=== PATIENT | male | born 1940 ===

== ENCOUNTER 2021-01-20 14:56 | Inpatient (IN) | payer MEDICARE, OTHER ==
[~2021-01-20] VITALS: Ht 175.3 cm; Wt 66.7 kg
--- NOTE | 2021-01-20 15:42 | NUR ---
Leonid christina in ED - 01/20/21 at 1544 by MOE Advanced pt from ice to water to jello to crackers. Pt tolerated well. MD ríos
[2021-01-20] MEDS ORDERED: LISI2.5T2 PO (16:46)
[2021-01-20] MEDS ORDERED: NITR0.4T48 SL (16:46)
[2021-01-20] MEDS ORDERED: ROSU20TA2 PO (16:46)
[2021-01-20] MEDS ORDERED: ASPI81TA31 PO (16:46)
[2021-01-20] MEDS ORDERED: ATOR80TA PO (16:46)
[2021-01-20] MEDS ORDERED: TRAZ-257 PO (16:46)
--- NOTE | 2021-01-20 18:08 | NUR ---
Called report to [facility]. Pt was taken over to unit.
[2021-01-20 20:00] VITALS: BP 125/72
[2021-01-20] MEDS ORDERED: BLOOD SUGAR DIAGNOSTIC 1 EACH STRIP VI ONE (20:30)
[2021-01-20] MEDS ORDERED: MAGNESIUM HYDROXIDE 30 ML LIQUID UDC PO PRN (20:30)
[2021-01-20] MEDS ORDERED: TEMAZEPAM 7.5 MG CAPSULE PO PRN (20:30)
[2021-01-20] MEDS ORDERED: MAG HYDROX/AL HYDROX/SIMETH 30 ML LIQUID UDC PO PRN (20:30)
[2021-01-20] MEDS ORDERED: ACETAMINOPHEN 325 MG TABLET PO PRN (20:30)
[2021-01-20] MEDS ORDERED: LORAZEPAM 0.5 MG TABLET PO PRN (20:30)
--- NOTE | 2021-01-21 02:33 | NUR ---
ADMITTED TO THE UNIT A MALE ON A [address] GD [address] 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 ON FACE TO FACE ASSESSMENT HE ADMITTED TO FEELING DEPRESSED BUT DENIED WANTING TO KILL HIMSELF. HE SAID THE FRIEND MISCONSTRUED THE WILL HE WAS WRITING.HE SAID HE WAS AFRAID TO BE EVICTED FROM HIS ROOM SINCE HE HAD LIVED IN HIS APARTMENT FOR 15 YEARS AND PAYS VERY LITTLE FOR IT. HE ALSO SAID HE HAD A LOT OF JUNK AND DID NOT KNOW WHERE TO BEGIN. BUT PER HOLD HIS ROOM WAS CLEAN EXCEPT FOR A FEW ARTIFACTS. HE DENIED AH/VH. HE IS A/S X3. HANDBOOK AND ADVISEMENT GIVEN AND UNIT RULES EXPLAINED. WILL CONTINUE TO MONITOR.
--- NOTE | 2021-01-21 06:54 | NUR ---
SLEPT FOR 4;30HOURS. HAS HAD A SHOWER
[2021-01-21 07:30] VITALS: BP 143/84
[2021-01-21] MEDS: LISINOPRIL 5 MG TABLET PO SCH (08:52)
[2021-01-21] MEDS: ASPIRIN 81 MG TAB.CHEW PO SCH (08:52)
--- NOTE | 2021-01-21 09:09 | NUR ---
Firearms Report: Salesperson [employer] completed and submitted a [employer] firearms report for 5150 grave disability certification. A copy of report has been placed in patient chart.
[2021-01-21] MEDS ORDERED: NITROGLYCERIN 0.4 MG/TAB BOTTLE SL PRN (09:45)
--- NOTE | 2021-01-21 10:15 | NUR ---
SW Family Contact: Patient's ex- Diane ([phone]) is involved in patient's care. This SW contacted ex- Luisa to discuss treatment and discharge plan. Patient Diane stated if this SW can contact her at 1PM to discuss further. This SW will contact ex-.
--- NOTE | 2021-01-21 10:15 | NUR ---
SW Initial Discharge Plan: Patient currently resides home alone located at [address] Patient will need a facility. Patient's ex- Diane ([phone]) is involved in patient's care. This SW contacted ex- Luisa to discuss treatment and discharge plan. Patient Diane stated if this SW can contact her at 1PM to discuss further. SW will coordinate with family, treatment team, and MD to find proper placement.
--- NOTE | 2021-01-21 10:16 | NUR ---
Substance Abuse Intervention: Patient was provided with a brief substance abuse intervention and referred to [facility] ([phone]), [facility] ([phone]), and [facility] ([phone]).
--- NOTE | 2021-01-21 10:32 | NUR ---
Firearms Removal: Per medical records transfer summary report from [facility] Hilary Ritter RN documented on 01/19/2021 that [place] [employer] department ([phone]) officer Kortney confiscated the gun from the patient's home. Officer Kortney noted "home was clean and secured".
[2021-01-21] MEDS ORDERED: SERTRALINE HCL 50 MG TABLET PO SCH (13:00)
--- NOTE | 2021-01-21 13:35 | NUR ---
SW Family Contact: This SW spoke with patient's ex- Diane ([phone]) who is involved in patient's care. She stated friend Daniel is also involved but she is in communication with him. This SW discussed treatment and discharge planning. Luisa shared that patient is stressed about his finances. She expressed that he has been stressed because his sister is transitioning to a Memory Care Unit and she reported that her daughter Amber is having a family crisis. Diane shared that pt and her would not want pt to know that pt is at the hospital. This SW shared pt will be needing a nursing facility and she was agreeable with this plan. SW educated Diane on pt's health status and what 5150/5250 hold is.
[2021-01-21 15:35] VITALS: BP 125/75
[2021-01-21] MEDS: ATORVASTATIN 40 MG TABLET PO SCH (20:07)
[2021-01-21 20:28] VITALS: BP 134/80
[2021-01-21] MEDS ORDERED: risperiDONE 0.25 MG TABLET PO SCH (21:00)
--- NOTE | 2021-01-22 06:07 | NUR ---
GPS: Pt.slept for 7 hrs.last night. Less anxious and depressed. Denies wanting to hurt self. Re-directed and re-assured prn. Will continue to monitor.
[2021-01-22 07:00] LABS: BASOPHILS % (AUTO) 0.3 % (0.0-2.0); EOSINOPHILS % (AUTO) 0.4 % (0.0-7.0); HEMATOCRIT 42.4 % (36.7-47.1); HEMOGLOBIN 14.5 g/dL (12.5-16.3); LYMPHOCYTES # (AUTO) 1.5 K/uL (20.0-40.0); LYMPHOCYTES % (AUTO) 24.1 % (20.5-51.5); MEAN CORPUSCULAR HEMOGLOBIN 33.3 uug (23.8-33.4); MEAN CORPUSCULAR HGB CONC 34 g/dL (32.5-36.3); MEAN CORPUSCULAR VOLUME 97.5 fL (73.0-96.2); MONOCYTES # (AUTO) 0.5 K/uL (2.0-10.0); NEUTROPHILS # (AUTO) 4.1 K/uL (1.8-8.9); NEUTROPHILS % (AUTO) 67.2 % (38.5-71.5); PLATELET COUNT (AUTO) 158 K/uL (152-348); RED BLOOD CELL COUNT(AUTO) 4.34 MIL/uL (4.06-5.63); WHITE BLOOD COUNT (AUTO) 6.2 K/uL (3.6-10.2)
[2021-01-22 07:23] LABS: THYROID STIMULATING HORMONE 2.546 mIU/mL (0.358-3.740)
[2021-01-22 07:30] VITALS: BP 123/79
--- NOTE | 2021-01-22 07:30 | NUR ---
Patient report received from credit reference clerk. Patient seen resting in bed. Alert and oriented x 3. scrap burner stated patient anxious about eviction and has depression. Compliant with medications. No thoughts of SI and HI at this time. Patient calm upon approach. Bed in low and locked position. Will continue to monitor.
[2021-01-22 07:51] LABS: BILIRUBIN,TOTAL 0.9 mg/dL (0.2-1.0); MAGNESIUM 2.2 mg/dL (1.8-2.4); PHOSPHOROUS 3.1 mg/dL (2.5-4.9); POTASSIUM 4.4 mmol/L (3.5-5.1); TOTAL PROTEIN, SERUM 7.3 g/dL (6.4-8.2)
[2021-01-22] MEDS: ASPIRIN 81 MG TAB.CHEW PO SCH (08:33)
[2021-01-22] MEDS: LISINOPRIL 5 MG TABLET PO SCH (08:33)
[2021-01-22] MEDS: SERTRALINE HCL 50 MG TABLET PO SCH (13:37)
[2021-01-22 16:51] VITALS: BP 113/70
--- NOTE | 2021-01-22 18:31 | NUR ---
patient isolative, withdrawn, on monitoring [id number] for safety, patient denies SI and Hi, minimizes his symptoms, assisted with ADL, no sign of any distress at this time
--- NOTE | 2021-01-22 18:35 | NUR ---
Patient has been more anxious throughout the day. He stated that he was anxious about his financial status and being able to afford placement in a facility. SW able to speak with the patient. Anxiousness subsided after. He has been compliant with medications. Alert and oriented x 3. Spent some time in the recreational room. Walks around occasionally. No reports of SI and HI at this time.
[2021-01-22] MEDS: ATORVASTATIN 40 MG TABLET PO SCH (20:07)
[2021-01-22] MEDS: risperiDONE 0.5 MG TABLET PO SCH (20:07)
[2021-01-22 20:38] VITALS: BP 134/81
--- NOTE | 2021-01-22 23:42 | NUR ---
GPS: Pt.noted to be awake at this time. Refused sleeping pill when offered despite explanation of risks vs benefits x3. Quiet environment provided to facilitate sleep. Re-assured prn. No verbalization of SI noted.
--- NOTE | 2021-01-23 06:36 | NUR ---
GPS: Pt.slept for 6 hrs.last night and now currently in the shower. Less depressed and anxious. Re-directed and re-assured prn. Denies SI. Safe environment provided.
[2021-01-23 07:30] VITALS: BP 120/72
[2021-01-23] MEDS: ASPIRIN 81 MG TAB.CHEW PO SCH (08:40)
[2021-01-23] MEDS: FAMOTIDINE 20 MG TABLET PO SCH (08:40)
[2021-01-23] MEDS: LISINOPRIL 5 MG TABLET PO SCH (08:41)
--- NOTE | 2021-01-23 10:51 | NUR ---
SNF Referral: This SW faxed to Jaycee desai ([phone]) to [facility]. This SW faxed H & P psychiatric note, progress notes, and medication lists.
--- NOTE | 2021-01-23 11:01 | NUR ---
SW Family Contact: This SW received a phone call from ex- Diane ([phone]) who wanted an update on patient's status. This SW stated this creative writer will find patient a nursing facility and she was agreeable with this.
--- NOTE | 2021-01-23 12:17 | NUR ---
SNF Referral: This SW received a call from Jaycee admin ([phone]) who stated pt is accepted to [facility].
[2021-01-23] MEDS: SERTRALINE HCL 50 MG TABLET PO SCH (13:27)
[2021-01-23 17:27] VITALS: BP 108/68
[2021-01-23] MEDS: ENSURE ENLIVE (VAN) 240 ML LIQUID PO SCH (17:37)
[2021-01-23 20:10] VITALS: BP 117/73
[2021-01-23] MEDS: risperiDONE 0.5 MG TABLET PO SCH (20:11)
[2021-01-23] MEDS: ATORVASTATIN 40 MG TABLET PO SCH (20:11)
[2021-01-23] MEDS: DOCUSATE SODIUM 100 MG CAPSULE PO SCH (20:15)
--- NOTE | 2021-01-24 06:43 | NUR ---
GPS: Pt.now awake. Slept for 7.30 last night. Remains anxious,paranoid and suspicious. Re-assured prn. Safe environment provided. Denies SI. Will continue to monitor.
[2021-01-24 07:30] VITALS: BP 102/71
[2021-01-24] MEDS: DOCUSATE SODIUM 100 MG CAPSULE PO SCH ×2 (08:21→20:21)
[2021-01-24] MEDS: ENSURE ENLIVE (VAN) 240 ML LIQUID PO SCH ×2 (08:21→16:04)
[2021-01-24] MEDS: FAMOTIDINE 20 MG TABLET PO SCH (08:21)
[2021-01-24] MEDS: LISINOPRIL 5 MG TABLET PO SCH (08:21)
[2021-01-24] MEDS: ASPIRIN 81 MG TAB.CHEW PO SCH (08:21)
--- NOTE | 2021-01-24 10:03 | NUR ---
Individual Therapy: oyster worker met with patient for brief counseling to help address patient's presenting problem SI. Patient denies SI. Patient appeared less depressed and less paranoid about his coverage at the hospital. Patient is understanding and wants to continue his care.
--- NOTE | 2021-01-24 11:29 | NUR ---
[facility] PC Hearing: Patient had 5250 probable cause hearing today and it was upheld for danger to self and grave disability.
[2021-01-24] MEDS: SERTRALINE HCL 50 MG TABLET PO SCH ×2 (12:10→16:04)
[2021-01-24] MEDS ORDERED: FLEET ENEMA 133 ML BOTTLE RC ONE (12:45)
[2021-01-24 16:13] VITALS: BP 105/68
--- NOTE | 2021-01-24 18:17 | NUR ---
received patient AOx1-2, Patient anxious , pre occupied of having impacted feces, patient refused taking medication , gave water and prune juice , patient refused Enema and laxative, patient tried more times but eventually had a good amount of soft stool. patient assisted with his ADLs took bath and trim his mustache, patient had good appetite during dinner time. patient on monitoring [id number] for safety, been compliant with medication, milieu therapy and care, assisted with his ADL, denies SI and HI, denies AH/VH at this time, no sign of distress
[2021-01-24 20:08] VITALS: BP 121/70
[2021-01-24] MEDS: ATORVASTATIN 40 MG TABLET PO SCH (20:21)
[2021-01-24] MEDS: risperiDONE 0.5 MG TABLET PO SCH (20:21)
--- NOTE | 2021-01-25 05:57 | NUR ---
Received the patient last night in his room. Somewhat anxious, but refusing to take any medications for anxiety that were offered. The job specification writer found it difficult to engage the patient in any meaningful conversation and noticed that the patient had a blank stare. This patient seems to struggle with letting his needs be known or to express feelings of any kind. Sleep hours were 5.00 last night. No acute distress noted and this job specification writer will continue to encourage the patient to verbalize his needs.
[2021-01-25 08:33] VITALS: BP 128/79
[2021-01-25] MEDS: DOCUSATE SODIUM 100 MG CAPSULE PO SCH ×2 (08:44→20:05)
[2021-01-25] MEDS: FAMOTIDINE 20 MG TABLET PO SCH (08:44)
[2021-01-25] MEDS: ASPIRIN 81 MG TAB.CHEW PO SCH (08:45)
[2021-01-25] MEDS: LISINOPRIL 5 MG TABLET PO SCH (08:45)
[2021-01-25] MEDS: ENSURE ENLIVE (VAN) 240 ML LIQUID PO SCH ×2 (08:52→16:50)
[2021-01-25] MEDS: SERTRALINE HCL 50 MG TABLET PO SCH ×2 (12:41→16:26)
[2021-01-25 16:28] VITALS: BP 93/58
[2021-01-25 20:00] VITALS: BP 123/78
[2021-01-25] MEDS: ATORVASTATIN 40 MG TABLET PO SCH (20:05)
[2021-01-25] MEDS: risperiDONE 0.5 MG TABLET PO SCH (20:05)
--- NOTE | 2021-01-26 05:14 | NUR ---
Pt asleep at this time, no s/s of distress. Denies SI and pain. Compliant with HS meds. Stayed in his room most of the night. Safety precautions in place, frequent rounds done to ensure safety.
[2021-01-26 07:30] VITALS: BP 108/62
[2021-01-26] MEDS: FAMOTIDINE 20 MG TABLET PO SCH (08:01)
[2021-01-26] MEDS: DOCUSATE SODIUM 100 MG CAPSULE PO SCH ×2 (08:01→20:03)
[2021-01-26] MEDS: LISINOPRIL 5 MG TABLET PO SCH (08:02)
[2021-01-26] MEDS: ASPIRIN 81 MG TAB.CHEW PO SCH (08:02)
[2021-01-26] MEDS: ENSURE ENLIVE (VAN) 240 ML LIQUID PO SCH ×2 (08:15→16:28)
[2021-01-26] MEDS: SERTRALINE HCL 50 MG TABLET PO SCH ×2 (12:13→16:26)
[2021-01-26 16:00] VITALS: BP 106/62
[2021-01-26 20:00] VITALS: BP 117/68
[2021-01-26] MEDS: ATORVASTATIN 40 MG TABLET PO SCH (20:03)
[2021-01-26] MEDS: risperiDONE 0.5 MG TABLET PO SCH (20:04)
--- NOTE | 2021-01-26 22:45 | NUR ---
Received pt resting in bed. No acute distress noted. Pt mostly kept to himself and stayed in the room. Denies SI. Due meds given as ordered. Safety measures maintained. Will continue to monitor.
[2021-01-27 07:30] VITALS: BP 126/77
[2021-01-27] MEDS: DOCUSATE SODIUM 100 MG CAPSULE PO SCH ×2 (08:17→21:04)
[2021-01-27] MEDS: ASPIRIN 81 MG TAB.CHEW PO SCH (08:17)
[2021-01-27] MEDS: LISINOPRIL 5 MG TABLET PO SCH (08:17)
[2021-01-27] MEDS: FAMOTIDINE 20 MG TABLET PO SCH (08:17)
[2021-01-27] MEDS: ENSURE ENLIVE (VAN) 240 ML LIQUID PO SCH ×2 (08:24→17:29)
--- NOTE | 2021-01-27 10:58 | NUR ---
SW Family Contact: This SW spoke with patient's ex- Diane ([phone]) and discussed discharge plan and she is agreeable with pt going to [facility] SNF.
--- NOTE | 2021-01-27 11:21 | NUR ---
SW Note: This SW spoke with pt and stated that he is accepted to [facility] SN[facility] and he is agreeable with this.
[2021-01-27] MEDS: SERTRALINE HCL 50 MG TABLET PO SCH ×2 (13:43→17:28)
--- NOTE | 2021-01-27 14:57 | NUR ---
Individual Therapy: sheetmetal trades worker met with patient for brief counseling to help address patient's presenting problem SI. Patient denies SI. Patient appeared guarded and was vague with this SW. Patient expressed that he does not feel depressed. However, patient did appear depressed. Patient did not want to verbalize his feelings. SW unable to provide proper therapy at this time.
[2021-01-27 15:39] VITALS: BP 102/61
[2021-01-27 20:39] VITALS: BP 116/64
[2021-01-27] MEDS ORDERED: risperiDONE 0.5 MG TABLET PO SCH (21:00)
[2021-01-27] MEDS: ATORVASTATIN 40 MG TABLET PO SCH (21:03)
[2021-01-27] MEDS: risperiDONE 1 MG TABLET PO SCH (21:03)
[2021-01-28 07:30] VITALS: BP 129/72
[2021-01-28] MEDS: DOCUSATE SODIUM 100 MG CAPSULE PO SCH ×2 (09:29→20:03)
[2021-01-28] MEDS: FAMOTIDINE 20 MG TABLET PO SCH (09:29)
[2021-01-28] MEDS: ASPIRIN 81 MG TAB.CHEW PO SCH (09:29)
[2021-01-28] MEDS: LISINOPRIL 5 MG TABLET PO SCH (09:29)
[2021-01-28] MEDS: ENSURE ENLIVE (VAN) 240 ML LIQUID PO SCH ×2 (09:34→17:00)
[2021-01-28] MEDS: SERTRALINE HCL 50 MG TABLET PO SCH ×2 (12:32→16:35)
[2021-01-28 15:11] VITALS: BP 121/70
[2021-01-28] MEDS: ATORVASTATIN 40 MG TABLET PO SCH (20:03)
[2021-01-28] MEDS: risperiDONE 1 MG TABLET PO SCH (20:03)
[2021-01-28 20:23] VITALS: BP 110/63
[2021-01-29 07:30] VITALS: BP 120/68
[2021-01-29] MEDS: FAMOTIDINE 20 MG TABLET PO SCH (08:26)
[2021-01-29] MEDS: ASPIRIN 81 MG TAB.CHEW PO SCH (08:26)
[2021-01-29] MEDS: DOCUSATE SODIUM 100 MG CAPSULE PO SCH ×2 (08:26→20:05)
[2021-01-29] MEDS: LISINOPRIL 5 MG TABLET PO SCH (08:27)
[2021-01-29] MEDS: ENSURE ENLIVE (VAN) 240 ML LIQUID PO SCH ×3 (08:31→17:07)
[2021-01-29] MEDS: SERTRALINE HCL 50 MG TABLET PO SCH ×2 (12:58→17:06)
--- NOTE | 2021-01-29 14:08 | NUR ---
SW SNF Contacts: This SW contacted [facility] ([phone]), (F: [phone]) and spoke with admin Shanell who stated they can not take pt because they are not psych focused. This SW contacted [facility] ([phone]) (F:[phone]) and spoke with admin Cassi who stated they can not take pt because he is "a lot to handle". This SW contacted [facility] ([phone]) (F:[phone]) and spoke with Josselin who stated the DON will review and will contact this SW. This SW contacted [facility] ([phone]) (F: [phone]) and spoke with Tess Desai who stated they will review. This SW contacted [facility] ([phone]) (F: [phone]) and spoke with Debra desai who stated they will review. This SW contacted [facility] ([phone]) (F: [phone]) who stated they can not accept pt. This SW contacted [facility] in [place] ([phone]) and spoke with admin Madisyn who stated she will review patient's packet. This SW contacted [facility] ([phone]) who stated they can accept pt.
--- NOTE | 2021-01-29 14:21 | NUR ---
SW Retoucher Contact: This SW received a phone call from medical malpractice paralegal Sharad ([phone]) who was threatening this SW to find a placement in [place]. This SW explained that this technical report writer has been in contact with ex- and pt regarding treatment and discharge plan since patient's admission. Sharad was demanding this SW to send clinicals. This SW explained that she will send clinicals for possible SNFs in [place]. Sharad then stated "Do you know how to do your job?". This SW advised Sharad that she will inform her of an accepting SNF in [place] if pt gets accepted.
--- NOTE | 2021-01-29 14:42 | NUR ---
SNF Contact: This SW contacted [facility] ([phone]) (F: [phone]) and stated they can not accept pt due to SI. This SW contacted [facility] ([phone]) (F: [phone]) and spoke with Manuel who stated they can not accept pt due to SI.
--- NOTE | 2021-01-29 14:44 | NUR ---
SNF Contact: This SW contacted [facility] ([phone]) (F:[phone]) and spoke with Josselin who stated they can not accept pt due to SI.
--- NOTE | 2021-01-29 15:05 | NUR ---
SW Note: This SW discussed discharge plan with pt. This SW stated that pt is accepted at [facility] located in [place], he was agreeable with this plan, however, he did state he would prefer "somewhere in [place]". Pt stated "I know [place] doesn't have facilities that are psych focused so if you are unable to find something in [place] it is ok". This SW stated she will update him once this short story writer has a final answer.
--- NOTE | 2021-01-29 15:32 | NUR ---
SW Block Sorter Contact: This SW contacted medical service representative Sharad ([phone]) and reported all of the denials of the nursing facilities in [place]. She is aware. This SW gave options that [facility] and [facility] SNF are the only ones accepting. She stated she will discuss with ex- and will notify this SW 01/30 which facility they will choose.
--- NOTE | 2021-01-29 15:37 | NUR ---
SNF Contact: This SW contacted [facility] in [place] ([phone]) and spoke with lloyd Mars who stated they cannot accept pt due to behaviors.
--- NOTE | 2021-01-29 15:49 | NUR ---
SW Family Contact: This SW received a phone call from patient's ex- Diane ([phone]) who stated to proceed with [facility].
[2021-01-29 16:00] VITALS: BP 98/60
[2021-01-29] MEDS: risperiDONE 1 MG TABLET PO SCH (20:04)
[2021-01-29] MEDS: ATORVASTATIN 40 MG TABLET PO SCH (20:05)
[2021-01-29 20:11] VITALS: BP 109/61
[2021-01-30 07:30] VITALS: BP 125/63
[2021-01-30] MEDS: DOCUSATE SODIUM 100 MG CAPSULE PO SCH ×2 (08:28→20:03)
[2021-01-30] MEDS: LISINOPRIL 5 MG TABLET PO SCH (08:28)
[2021-01-30] MEDS: FAMOTIDINE 20 MG TABLET PO SCH (08:28)
[2021-01-30] MEDS: ASPIRIN 81 MG TAB.CHEW PO SCH (08:28)
[2021-01-30] MEDS: ENSURE ENLIVE (VAN) 240 ML LIQUID PO SCH ×3 (08:29→17:24)
--- NOTE | 2021-01-30 11:25 | NUR ---
SW Family Contact: This SW received a phone call from patient's ex- Diane ([phone]) who requested to speak to the doctor. This SW notified Dr. Salas to contact ex-.
[2021-01-30] MEDS: SERTRALINE HCL 50 MG TABLET PO SCH ×2 (12:22→16:40)
--- NOTE | 2021-01-30 14:47 | NUR ---
SW Family Contact: This SW and doctor Salas spoke with ex- Diane ([phone]) and discussed patient's treatment plan and discharge plan. Diane was in denial and was not accepting that patient is SI and wanted doctor Salas to not state that pt is SI in his medical records. Doctor Salas and this advertising copywriter discussed that SW sent clinicals to 7 nursing facilities in [place] and they denied pt because they are unable to manage him and they are not psych focused. SW explained that pt is accepted at [facility] SN[facility] and [facility]. Diane stated she would want pt to go to [facility].
[2021-01-30 16:00] VITALS: BP 111/57
--- NOTE | 2021-01-30 18:56 | NUR ---
Received patient in room. not in acute distress. encouraged patient to attend therapeutic groups but patient refused. patient denies SI/ HI. patient compliant with care and medication. will endorse to incoming shift for continuity of care.
[2021-01-30] MEDS: ATORVASTATIN 40 MG TABLET PO SCH (20:03)
[2021-01-30] MEDS: MEMANTINE HCL 5 MG TABLET PO SCH (20:03)
[2021-01-30] MEDS: risperiDONE 1 MG TABLET PO SCH (20:03)
[2021-01-30 20:14] VITALS: BP 118/62
[2021-01-31 07:30] VITALS: BP 92/52
[2021-01-31] MEDS: FAMOTIDINE 20 MG TABLET PO SCH (08:23)
[2021-01-31] MEDS: DOCUSATE SODIUM 100 MG CAPSULE PO SCH ×2 (08:23→20:43)
[2021-01-31] MEDS: MEMANTINE HCL 5 MG TABLET PO SCH ×2 (08:24→20:43)
[2021-01-31] MEDS: LISINOPRIL 5 MG TABLET PO SCH (08:24)
[2021-01-31] MEDS: ASPIRIN 81 MG TAB.CHEW PO SCH (08:24)
[2021-01-31] MEDS: ENSURE ENLIVE (VAN) 240 ML LIQUID PO SCH ×3 (08:24→16:04)
[2021-01-31] MEDS ORDERED: Z GUARD REMEDY PASTE 57 GM TUBE TOP PRN (11:00)
[2021-01-31] MEDS: SERTRALINE HCL 50 MG TABLET PO SCH ×2 (12:21→16:05)
[2021-01-31] MEDS: risperiDONE 0.25 MG TABLET PO SCH (12:25)
--- NOTE | 2021-01-31 14:36 | NUR ---
Individual Therapy: lead worker of housekeeping and laundry met with patient for brief counseling to help address patient's presenting problem SI. Patient denies SI. Patient appeared guarded and was vague with this SW. Patient continues to worry about his finances. Patient did not want to share much with this SW at this time.
[2021-01-31 17:21] VITALS: BP 93/53
--- NOTE | 2021-01-31 18:19 | NUR ---
patient calm cooperative denies SI and HI, patient assisted with ADL, patient been isolative
[2021-01-31 20:00] VITALS: BP 106/65
[2021-01-31] MEDS: risperiDONE 1 MG TABLET PO SCH (20:43)
[2021-01-31] MEDS: ATORVASTATIN 40 MG TABLET PO SCH (20:43)
--- NOTE | 2021-02-01 05:57 | NUR ---
GPS: Remain calm and cooperative with meds and care. no behavior issue noted. resting in bed comfortably. slept 6 hrs through the night. continue plan of care.
[2021-02-01 07:30] VITALS: BP 105/50
[2021-02-01 07:40] LABS: BASOPHILS % (AUTO) 0.4 % (0.0-2.0); EOSINOPHILS # (AUTO) 0.1 K/uL (0.0-0.7); EOSINOPHILS % (AUTO) 1.4 % (0.0-7.0); HEMATOCRIT 40.4 % (36.7-47.1); HEMOGLOBIN 13.8 g/dL (12.5-16.3); LYMPHOCYTES % (AUTO) 17.5 % (20.5-51.5); MEAN CORPUSCULAR HEMOGLOBIN 33.5 uug (23.8-33.4); MEAN CORPUSCULAR HGB CONC 34 g/dL (32.5-36.3); MEAN CORPUSCULAR VOLUME 98.5 fL (73.0-96.2); MONOCYTES # (AUTO) 0.5 K/uL (2.0-10.0); MONOCYTES % (AUTO) 8.8 % (0.0-11.0); NEUTROPHILS # (AUTO) 4.1 K/uL (1.8-8.9); NEUTROPHILS % (AUTO) 71.9 % (38.5-71.5); PLATELET COUNT (AUTO) 167 K/uL (152-348); WHITE BLOOD COUNT (AUTO) 5.7 K/uL (3.6-10.2)
[2021-02-01 07:46] LABS: MAGNESIUM 2.3 mg/dL (1.8-2.4); PHOSPHOROUS 3.1 mg/dL (2.5-4.9); POTASSIUM 4.4 mmol/L (3.5-5.1)
[2021-02-01] MEDS: LISINOPRIL 5 MG TABLET PO SCH (08:17)
[2021-02-01] MEDS: ASPIRIN 81 MG TAB.CHEW PO SCH (08:18)
[2021-02-01] MEDS: DOCUSATE SODIUM 100 MG CAPSULE PO SCH ×2 (08:18→20:15)
[2021-02-01] MEDS: FAMOTIDINE 20 MG TABLET PO SCH (08:18)
[2021-02-01] MEDS: MEMANTINE HCL 5 MG TABLET PO SCH ×2 (08:18→20:10)
[2021-02-01] MEDS: ENSURE ENLIVE (VAN) 240 ML LIQUID PO SCH ×3 (08:19→16:11)
[2021-02-01] MEDS: SERTRALINE HCL 50 MG TABLET PO SCH ×2 (12:13→16:11)
[2021-02-01] MEDS: risperiDONE 0.25 MG TABLET PO SCH (12:13)
[2021-02-01 15:44] VITALS: BP 101/64
--- NOTE | 2021-02-01 18:23 | NUR ---
recieved patient calm cooperative,patient showing appears to be in good mood, and seen walking around the hallway, and joined the group therapy , patient was able to have a meaningful conversation the fiction and nonfiction prose writer, verbalizes that his anxiety is regarding his apartment and he is aware that he needs help, patient compliant with medication, aware of possible DC , denies SI and Hi, assited with ADL, no sign of distress at this time
[2021-02-01 20:00] VITALS: BP 93/57
[2021-02-01] MEDS: ATORVASTATIN 40 MG TABLET PO SCH (20:10)
[2021-02-01] MEDS: risperiDONE 1 MG TABLET PO SCH (20:10)
--- NOTE | 2021-02-02 06:05 | NUR ---
GPS: Remain calm and cooperative with meds and care. no behavior issue noted. resting in bed comfortably. slept 5.45 hrs through the night. continue plan of care.
[2021-02-02 07:30] VITALS: BP 111/67
[2021-02-02] MEDS: ENSURE ENLIVE (VAN) 240 ML LIQUID PO SCH ×3 (08:27→16:38)
[2021-02-02] MEDS: MEMANTINE HCL 5 MG TABLET PO SCH ×2 (08:27→20:21)
[2021-02-02] MEDS: ASPIRIN 81 MG TAB.CHEW PO SCH (08:27)
[2021-02-02] MEDS: DOCUSATE SODIUM 100 MG CAPSULE PO SCH ×2 (08:27→20:21)
[2021-02-02] MEDS: FAMOTIDINE 20 MG TABLET PO SCH (08:27)
[2021-02-02] MEDS: LISINOPRIL 5 MG TABLET PO SCH (08:31)
[2021-02-02] MEDS: risperiDONE 0.25 MG TABLET PO SCH (12:18)
[2021-02-02] MEDS: SERTRALINE HCL 50 MG TABLET PO SCH ×2 (12:18→16:38)
[2021-02-02 15:24] VITALS: BP 124/65
--- NOTE | 2021-02-02 16:50 | NUR ---
patient remains calm and cooperative, denies suicidal thoughts, no distress noted. compliant with medications, no aggressive or combative behavior noted this shift. continue to monitor per GPS protocols
[2021-02-02 20:10] VITALS: BP 137/75
[2021-02-02] MEDS: ATORVASTATIN 40 MG TABLET PO SCH (20:21)
[2021-02-02] MEDS: risperiDONE 1 MG TABLET PO SCH (20:21)
[2021-02-03 07:30] VITALS: BP 117/68
--- NOTE | 2021-02-03 07:30 | NUR ---
Received report from RONALDO Mackay. All questions, comments, and concerns were addressed. Received patient resting quietly in his assigned bed. Bed is in low and locked position.
--- NOTE | 2021-02-03 08:03 | NUR ---
SW Discharge Note: Patient will be discharged to a locked senior care facility to [facility] [address] [place] [address]; ([phone]) via ambulance at 1PM. Patients ex- Diane ([phone]) is involved in patients care. Manager Care Management spoke with Jaycee, Auditing Control Clerk at [facility]; ([phone]), who stated patient will be accepted at facility today. Patient is alert and oriented x3 and is not able to plan for self-care at this time, but is willing to accept care provided for her at the facility. Patient denies any suicidal or homicidal ideations. Patient is aware and agreeable with discharge plans. Patient will continue to follow-up with her Psychiatrist Dr. Meza and Management Lecturer Dr. Craig. Patient was provided referrals to the following substance abuse programs for substance abuse: [facility] ([phone]); [facility] [address] [place] [address] ([phone]); [facility] [address] [address] ([phone]); [facility] ([phone]); [facility] ([phone]); [facility] ([phone]); [facility] ([phone]). Patient presents with euthymic mood and congruent affect.
[2021-02-03 09:42] VITALS: BP 117/68
[2021-02-03] MEDS: MEMANTINE HCL 5 MG TABLET PO SCH (09:42)
[2021-02-03] MEDS: ASPIRIN 81 MG TAB.CHEW PO SCH (09:42)
[2021-02-03] MEDS: LISINOPRIL 5 MG TABLET PO SCH (09:42)
[2021-02-03] MEDS: FAMOTIDINE 20 MG TABLET PO SCH (09:42)
[2021-02-03] MEDS: DOCUSATE SODIUM 100 MG CAPSULE PO SCH (09:42)
[2021-02-03] MEDS: ENSURE ENLIVE (VAN) 240 ML LIQUID PO SCH ×2 (10:03→13:00)
[2021-02-03] MEDS: risperiDONE 0.25 MG TABLET PO SCH (12:40)
[2021-02-03] MEDS: SERTRALINE HCL 50 MG TABLET PO SCH (12:40)
--- NOTE | 2021-02-03 13:30 | NUR ---
DISCHARGE NOTE: Patient is discharged to [facility] [place] [address] [place] [address] ([phone]). Patient was picked up by nonemergency ambulance and transported with no adverse event. Patient's belongings, valuables, and gordon money inventoried with patient and all was returned to patient. Patient signed belongings and valuables sheets. Patient is provided with educated about discharge medications and follow-up treatment after discharge, educated about discharge instructions and he was able to verbalize understanding. Patient denies SI/HI, denies AH/VH. Patient is alert and oriented in reality. Patient is cooperative with staff and able to verbalize his needs appropriately. Patient is adherent with prescribed medications with no adverse reaction noted.
== END 2021-02-03 13:30 | DRG 885 ==
LOC: ER 14:56 → GPS 17:55
PROVIDERS: ADMIT Psychiatry & Neurology Psychosomatic Medicine; ATTEND Internal Medicine
DX: F33.3 Major depressive disorder, recurrent, severe with psychotic symptoms (principal); F01.50 Vascular dementia, unspecified severity, without behavioral disturbance, psychotic disturbance, mood disturbance, and anxiety; R45.851 Suicidal ideations; I25.2 Old myocardial infarction; Z95.5 Presence of coronary angioplasty implant and graft; E78.5 Hyperlipidemia, unspecified; D75.89 Other specified diseases of blood and blood-forming organs; G47.00 Insomnia, unspecified; K21.9 Gastro-esophageal reflux disease without esophagitis; N40.0 Benign prostatic hyperplasia without lower urinary tract symptoms; Z90.79 Acquired absence of other genital organ(s); R73.03 Prediabetes; Z20.822 Contact with and (suspected) exposure to COVID-19; F41.0 Panic disorder [episodic paroxysmal anxiety]; F41.9 Anxiety disorder, unspecified; Z87.891 Personal history of nicotine dependence; I25.10 Atherosclerotic heart disease of native coronary artery without angina pectoris; I11.9 Hypertensive heart disease without heart failure; K59.00 Constipation, unspecified; G93.89 Other specified disorders of brain
CPT/HCPCS: 36415; 71045; 83735; 84100; 84443; 85025; 93005; A4663